=== PATIENT | male | born 1935 | race Caucasian/White ===

== ENCOUNTER 2019-09-21 05:02 | Inpatient (IN) ==
[2019-09-13 14:05] LABS: Basophils # (auto) 0.02 K/uL (0-0.2); Basophils % (auto) 0.3 %; Eosinophils # (auto) 0.07 K/uL (0-0.5); Hematocrit (blood only) 47.2 % (42-52); Hemoglobin 16.2 g/dL (14.0-18.0); Immature Granulocytes # (auto) 0.01 K/uL (0.00-0.02); Immature Granulocytes % (auto) 0.1 %; Lymphocytes % (auto) 23.2 %; Mean Corpuscular Hemoglobin 30.7 pg (25-34); Mean Corpuscular Hgb Conc 34.3 g/dL (32-36); Mean Corpuscular Volume 89.6 fL (80-100); Mean Platelet Volume 8.7 fL (7.4-10.4); Monocytes # (auto) 0.52 K/uL (0.11-0.59); Monocytes % (auto) 7.1 %; Neutrophils # (auto) 5.01 K/uL (1.4-6.5); Neutrophils % (auto) 68.3 %; Platelet Count 190 K/uL (130-400); RDW Coefficient of Variation 12.6 % (11.5-14.5); RDW Standard Deviation 41.1 fL (36.4-46.3); Red Blood Count 5.27 M/uL (4.7-6.1); White Blood Count 7.33 K/uL (4.8-10.8)
[2019-09-13 14:34] LABS: Prothrombin Time 10.6 Seconds (9.0-12.0)
[2019-09-13 17:18] LABS: Alanine Aminotransferase 22 U/L (12-78); Albumin Level 3.7 gm/dl (3.4-5.0); BUN Creatinine Ratio 19.1 (10-20); Blood Urea Nitrogen 18 mg/dl (7-18); Calcium 8.8 mg/dl (8.5-10.1); Carbon Dioxide 29 mmol/L (21-32); Chloride 106 mmol/L (98-107); Est GFR (African American) 87.2; Est GFR (Non-African American) 75.2; Glucose 105 mg/dl (70-99); Potassium 4.4 mmol/L (3.5-5.1); Sodium 141 mmol/L (136-145)
[2019-09-13 17:29] LABS: Albumin Globulin Ratio 1.1 (0.9-2); Alkaline Phosphatase 82 U/L (45-117); Aspartate Aminotransferase 19 U/L (15-37); Bilirubin,Total 0.7 mg/dl (0.2-1); C Reactive Protein < 0.29 mg/dl (0-0.29); Globulin 3.5 gm/dl (2.5-4.0); Total Protein 7.2 gm/dl (6.4-8.2)
--- NOTE | 2019-09-14 12:43 | History and Physical Report ---
DATE OF ADMISSION: 09/21/2019 CHIEF COMPLAINT: Left hip pain, discomfort, and stiffness. HISTORY OF PRESENT ILLNESS: The patient is an 84-year-old gentleman from [place] who presents now for surgical treatment of his left hip. He is well known to me from previous right hip replacement done in 11/2006. We had actually scheduled for left hip surgery in June, but he got canceled due to the COVID epidemic. He now would like to proceed with surgery. He has got a year plus history of increasing left hip pain and discomfort. No known injury. He describes groin pain, thigh pain radiating down to his knee but no further. He has difficulty putting his shoes and socks on. He walks with a hunched over posture and limps more as the day goes on. He was initially going to go have his hip fixed in [place], but elected to have it done here. He would like to have his hip fixed now. PAST MEDICAL HISTORY: 1. Hypertension. 2. Elevated cholesterol. 3. Gastroesophageal reflux disease. 4. Hiatal hernia. 5. BPH. PAST SURGICAL HISTORY: Includes: 1. Right total hip replacement done on 12/24/2006. 2. Eye surgery. ALLERGIES: None. CURRENT MEDICATIONS: Include: 1. Hyzaar. 2. Omeprazole. 3. Multivitamin. 4. Pravastatin. 5. Finasteride. 6. Turmeric. SOCIAL HISTORY: An 84-year-old male. He is from [place]. He is . Does not smoke. Rare alcohol intake. FAMILY HISTORY: Noncontributory. REVIEW OF SYSTEMS: Negative for diabetes, neurologic problem, vascular problems or other bleeding disorders. No chest pain or shortness of breath. No history of DVT or PE. No known bleeding problems. PHYSICAL EXAMINATION: GENERAL: Reveals a healthy pleasant elderly male. Looks younger than his stated age. HEENT: Benign. NECK: Supple, no lymphadenopathy. LUNGS: Clear to auscultation. HEART: Has a regular rate and rhythm. ABDOMEN: Soft, nontender, nondistended. EXTREMITIES: Grossly neurovascularly intact except as follows: Examination of the left hip reveals the patient walks with a bit of a limp. He is about 0.5 cm short on the left side compared to the right. He has got a very stiff hip with internal rotation to neutral at best. This does recreate his pain. He has no knee effusion. Negative straight leg raise. X-RAYS: X-rays of the left hip were reviewed. It shows advanced left hip DJD. He has got complete loss of his joint space. He has got cystic change of the femoral head and acetabulum. The right hip replacement looks to be in good position. ASSESSMENT: An 84-year-old gentleman 13 years out from right hip replacement with advanced left hip degenerative joint disease. He has failed conservative care. He was previously scheduled for surgery but canceled due to the COVID epidemic. He has been tested and his COVID test is pending. PLAN: We are going to proceed with left total hip replacement. The risks and benefits of this procedure were explained to the patient and include but not limited to DVT, PE, , infection, neurological injury, vascular injury, bleeding problem, pain, limited range of motion, stiffness, failure to relieve symptoms, incomplete relief of symptoms, need for further surgery in the future, fracture, leg length inequality, nerve palsy, dislocation, etc. The patient understands and desires to proceed. Informed consent was obtained. As stated above, he was scheduled previously but canceled due to the COVID epidemic. He would now like to proceed. He knows the slight increased risks with the COVID situation. He has been tested and this test is currently pending. As far as discharge plans, he is planning to be discharged home using [facility] program.
--- NOTE | 2019-09-15 10:27 | Anesthesiology Consultation ---
Date of Service September 15, 2019 Assessment & Plan (1) Encounter for pre-operative examination: COVID Status: As of nurse assessment 09/14, patient denies travel to endemic area, known exposure/sick contacts, or symptoms. He was tested for coronavirus for pre-op screening on 09/12 at [facility]. Results pending. Chart Review Chart Review: Acceptable Risk for Surgery (pending covid test results) and Patient NOT seen in Pre Admission Testing History Surgery Operation Date: 09/21/19 12:30 Proposed Procedures p Left Total Hip Arthroplasty - Phani Santos MD Height/Weight Height: 5 ft 8 in Weight: 85.275 kg Allergies Allergy/AdvReac Type Severity Reaction Status Date / Time No Known Allergies Allergy Unknown Verified 09/15/19 08:57 Medications Home Medications Medication Instructions Recorded Confirmed Last Taken finasteride 5 mg PO HS 06/26/19 09/15/19 Unknown hydrochlorothiazide 25 mg PO QAM 06/26/19 09/15/19 Unknown [id number]-[id number]-[id number]-ast 1 cap PO QAM 06/26/19 09/15/19 Unknown [krill oil] losartan 100 mg PO QAM 06/26/19 09/15/19 Unknown multivitamin 1 tab PO DAILY 06/26/19 09/15/19 Unknown omeprazole 40 mg PO QAM 06/26/19 09/15/19 Unknown pravastatin [Pravachol] 40 mg PO HS 06/26/19 09/15/19 Unknown turmeric 400 mg PO DAILY 06/26/19 09/15/19 Unknown 3-in-1 Commode #1 ea 06/29/19 09/15/19 Unknown diphenhydramine HCl [Sleep Aid 25 mg PO HS 09/15/19 09/15/19 Unknown (diphenhydramine)] Past Medical History Medical History Arthritis of left hip BCC (basal cell carcinoma) BPH (benign prostatic hyperplasia) GERD (gastroesophageal reflux disease) controlled Hyperlipidemia Hypertension Melanoma Osteoarthritis SCC (squamous cell carcinoma) Splenic artery aneurysm ~6mm (under surveillance) Past Family History Family History Mother FHx: liver cancer Other No family history of adverse response to anesthesia Past Surgical History Surgical History History of cataract surgery bilateral History of colonoscopy History of esophageal dilatation History of esophagogastroduodenoscopy (EGD) History of right hip replacement History of surgical removal of lesion History of tonsillectomy Status post Mohs surgery Social History Smoking Status: Former smoker tobacco type: cigars Smoking cigarettes per day: none Do You Dip or Chew Tobacco: No Smoking End Date: quit smoking cigar 4 months ago Hx Alcohol Use: No (quit 25 yrs ago) Hx Substance Use: No substance use type: does not use Testing Laboratory Results 09/13/19 13:13 09/13/19 13:13 PT 10.6 Seconds (9.0-12.0) 09/13/19 13:13 INR 1.0 (0.9-1.1) 09/13/19 13:13 Blood Type A Positive 09/13/19 13:13 Antibody Screen NEGATIVE 09/13/19 13:13 Electrocardiogram Date: 06/29/19 Findings: + NSR @ (69bpm) iRBBB (new compared to 2006 EKG). Chest X-Ray Date: 06/29/19 IMPRESSION: Mild cardiac enlargement with no active disease in the chest.
[2019-09-17 16:04] LABS: SARS CoV2 RNA (COVID-19) NOT DETECTED (NOT DETECTED)
[2019-09-21] MEDS ORDERED: CEFAZOLIN 2000MG 2,000 MG/15 ML SYR IV SCH (06:00)
[2019-09-21] MEDS ORDERED: TRANEXAMIC ACID 1,000 MG **IV Intra-op IV SCH (06:00)
[2019-09-21] MEDS ORDERED: LR 500ML BOLUS, THEN 15ML/HR IV SCH (06:00)
[2019-09-21] MEDS ORDERED: GABAPENTIN 300 MG CAP PO SCH (06:00)
[2019-09-21] MEDS ORDERED: TRANEXAMIC ACID 1,000 MG **IV Pre-op IV SCH (06:00)
[2019-09-21] MEDS ORDERED: ACETAMINOPHEN 500 MG TAB PO SCH (06:00)
[2019-09-21] MEDS ORDERED: METOCLOPRAMIDE HCL 10 MG TABLET PO SCH (06:00)
[2019-09-21] MEDS ORDERED: FAMOTIDINE 20 MG TAB PO SCH (06:00)
[2019-09-21] MEDS ORDERED: MIDAZOLAM HCL 1 MG/ML 2ML VIAL ONE (06:21)
[2019-09-21] MEDS ORDERED: BUPIVACAINE 0.5 % 5 MG/1 ML PF 10ML VIAL ONE (06:21)
[2019-09-21] MEDS ORDERED: MoRPHine SULFATE PF 1 MG/ML 10 ML AMP/VIAL ONE (06:22)
[2019-09-21] MEDS ORDERED: fentaNYL citrate 100 MCG/2 ML VIAL ONE (06:22)
[2019-09-21] MEDS ORDERED: BACITRACIN INJ 50,000 UNIT VIAL ONE (06:38)
[2019-09-21] MEDS ORDERED: BUPIVACAINE 0.5 % 5 MG/1 ML MPF 30ML VIAL ONE (06:39)
[2019-09-21] MEDS ORDERED: EPINEPHrine INJ 1 MG/ML AMP ONE (06:39)
--- NOTE | 2019-09-21 06:48 | History & Physical Bridge Note ---
Date of Service September 21, 2019 History & Physical Bridge Note I have examined the patient, reviewed the History & Physical and in the interval since the performance of the History & Physical I have noted the following changes of clinical significance: no changes noted
[2019-09-21] MEDS ORDERED: DiphenhydrAMINE HCL 50 MG/ML VIAL IV PRN (06:59)
[2019-09-21] MEDS ORDERED: NALBUPHINE HCL INJ 10 MG/ML AMP IV PRN (06:59)
[2019-09-21] MEDS ORDERED: ePHEDrine sulfate 50 MG/ML AMP IV PRN ×2 (06:59)
[2019-09-21] MEDS ORDERED: ONDANSETRON INJ 2 MG/ML 2 ML VIAL IV PRN (06:59)
[2019-09-21] MEDS ORDERED: NALOXONE HCL 1 MG in SODIUM CHLORIDE 0.9% 1000ML 1,000 ML IV PRN (06:59)
[2019-09-21] MEDS ORDERED: ATROPINE SULFATE 0.1 MG/ML 10ML SYR IV PRN (06:59)
[2019-09-21] MEDS ORDERED: NALOXONE HCL 0.08 MG in SYRINGE 1.8 ML IV PRN (06:59)
[2019-09-21] MEDS ORDERED: NALOXONE HCL 0.4 MG/1 ML VIAL/CARP IV PRN ×2 (06:59→09:44)
[2019-09-21] MEDS ORDERED: MoRPHine SULFATE PF 1 MG/ML 10 ML AMP/VIAL INT SPINAL ONE (06:59)
[2019-09-21] MEDS ORDERED: LACTATED RINGER'S 500 ML IV PRN (06:59)
[2019-09-21] MEDS ORDERED: HYDROmorphone INJ 0.5 MG/0.5 ML SYR IV PRN (06:59)
[2019-09-21] MEDS ORDERED: SODIUM CHLORIDE 0.9% 1000ML 1,000 ML IV SCH (07:00)
[2019-09-21] MEDS ORDERED: NO NARCOTICS OR SEDATIVES SCH (07:00)
[2019-09-21] MEDS ORDERED: PHENYLEPHRINE 100MCG/ML 5ML SYR ONE (07:10)
[2019-09-21] MEDS ORDERED: PROPOFOL IV EMULSION 10 MG/ML 20 ML VIAL IV ONE ×2 (07:10→07:12)
[2019-09-21] MEDS ORDERED: ePHEDrine sulfate 50 MG/ML SYR ONE (07:30)
--- NOTE | 2019-09-21 08:25 | Post Operative Brief Note ---
PG Immediate Post Op with CF Date of Surgery September 21, 2019 Pre & Post Diagnosis Operation Date: 09/21/19 07:00 Pre-Op Diagnosis: Left Hip Degenerative Joint Disease Post-Op Diagnosis: Left Hip Degenerative Joint Disease I identified the patient and participated in the time-out.: Yes Procedure Operation Date: 09/21/19 07:00 Actual Procedures p Left Total Hip Arthroplasty(Left) - Phani Santos MD Surgeon Phani Santos MD Sleever Sean, PAC Estimated Blood Loss 200 Findings Consistent with Post-Op Diagnosis Fluids 1400 cc Specimens Specimen Description: A. Left Femoral Head Drains Cleary Catheter (16fr inserted by CANDACE Schaefer without difficulty) Anesthesia Type Spinal MAC Complications none Disposition Accompanied Patient To Recovery: Yes Disposition: Recovery Room
--- NOTE | 2019-09-21 08:52 | Anesthesiology Progress Note ---
Date of Service September 21, 2019 Anesthesia Post Procedure Vital Signs Vital Signs: Temp Pulse Pulse Resp BP BP Pulse Ox 09/21/19 08:50 86 20 109/57 L 96 09/21/19 08:40 77 17 122/59 L 94 09/21/19 08:30 85 17 112/56 L 95 09/21/19 08:21 36.5 C 85 18 129/62 96 09/21/19 05:35 36.9 C 76 20 153/89 H 97 Transfer of Care Handoff Completed per policy Notes Mental Status: alert / awake / arousable Patient Amnestic to Procedure: Yes Nausea / Vomiting: adequately controlled Pain: adequately controlled Airway Patency, RR, SpO2: stable & adequate BP & HR: stable & adequate Hydration State: stable & adequate Neuraxial Anesthesia: was administered and sensory block is resolving Anesthetic Complications: no major complications apparent and Pt Satisfied with anesthetic care
--- NOTE | 2019-09-21 09:06 | XRay Report ---
XR hip 1V LT w pelvis HISTORY: 84 years-old Male IN PACU - A/P PELVIS and LATERAL HIP left hip total joint arthroplasty COMPARISON: Pelvis and hip radiographs 06/29/2019 TECHNIQUE: AP view of the pelvis with 2 views of the left hip FINDINGS: Unchanged right hip total joint arthroplasty. Interval placement of a left hip total joint arthroplas ty which demonstrates satisfactory alignment. No acute fracture or retained foreign body. Lateral ski n davina. Expected postsurgical soft tissue swelling and deep tissue air. IMPRESSION: Left hip total joint arthroplasty with expected postoperative findings. ACT 112: Negative or not required by law. The above report was generated using voice recognition software. It may contain grammatical, syntax o r spelling errors. Electronically signed by: Stuart Glass M.D. 09/21/2019 9:04 AM
[2019-09-21] MEDS ORDERED: MAGNESIUM HYDROXIDE SUSP 30 ML UDC PO PRN (09:44)
[2019-09-21] MEDS ORDERED: TAMSULOSIN HCL 0.4 MG CAP PO PRN (09:44)
[2019-09-21] MEDS ORDERED: MULTIVITAMIN TAB PO SCH (09:44)
[2019-09-21] MEDS ORDERED: ALUMINUM/MAGNESIUM SUSP 30 ML UDC PO PRN (09:44)
[2019-09-21] MEDS ORDERED: METOCLOPRAMIDE HCL INJ 5 MG/ML 2 ML VIAL IV PRN (09:44)
[2019-09-21] MEDS ORDERED: bisacodyL 10 MG SUPP PR PRN (09:44)
[2019-09-21] MEDS ORDERED: NON-FORMULARY MEDICATION (Turmeric 400 MG) PO SCH (09:44)
[2019-09-21] MEDS: SODIUM CHLORIDE 0.9% 1000ML 1,000 ML IV SCH ×2 (10:00→19:20)
--- NOTE | 2019-09-21 11:12 | Progress Notes ---
DATE: 09/21/2019 SUBJECTIVE: An 84-year-old gentleman postop from a left hip replacement. He is doing pretty well. Really not much pain yet. No chest pain or shortness of breath. Not feeling dizzy or lightheaded. OBJECTIVE: VITAL SIGNS: Temperature 36.4. Vital signs stable. GENERAL: Physical examination shows a pleasant, elderly male. He is sitting up in bed, looks reasonably comfortable. LUNGS: Clear to auscultation. HEART: Has regular rate and rhythm. ABDOMEN: Soft, nontender, nondistended. EXTREMITIES: Grossly neurovascularly intact except as follows. Examination of the left hip and leg reveals his leg lengths are equal. Dressing is clean, dry and intact. His thigh is soft and supple. He can dorsiflex and plantarflex his foot appropriately. He is neurologically intact. X-RAYS: X-rays of the left hip from Recovery Room reviewed. It shows left uncemented total hip arthroplasty. Components looked to be in good position. No signs of problems. ASSESSMENT: An 84-year-old gentleman postop from a left hip replacement, doing pretty well. Hip is located. He is neurologically intact. PLAN: 1. DVT prophylaxis including thigh-high TEDs, SCDs and aspirin twice a day. 2. PT/OT, weight bear as tolerated. Left total hip protocol. 3. Pain control, doing well with current pain regimen currently. We will have to adjust his meds as his spinal wears off. 4. IV antibiotics x24 hours. 5. Disposition: He is planning to be discharged to home with some home health once adequately recovered and medically stable.
[2019-09-21] MEDS: hydroCHLOROthiazide 25 MG TAB PO SCH (12:05)
[2019-09-21] MEDS: LOSARTAN POTASSIUM 50 MG TAB PO SCH (12:05)
[2019-09-21] MEDS: DOCUSATE SODIUM 100 MG CAP PO SCH ×2 (12:05→20:56)
[2019-09-21] MEDS: MULTIVITAMIN TAB PO SCH (12:06)
[2019-09-21] MEDS: PANTOprazole 40 MG TAB PO SCH (12:06)
[2019-09-21] MEDS: ASPIRIN 81 MG ECTAB PO SCH ×2 (12:06→20:56)
--- NOTE | 2019-09-21 13:00 | Operative Report ---
Post Operative Report Pre & Post Diagnosis Operation Date: 09/21/19 07:00 Pre-Op Diagnosis: Left Hip Degenerative Joint Disease Post-Op Diagnosis: Left Hip Degenerative Joint Disease I identified the patient and participated in the time-out.: Yes Procedure Operation Date: 09/21/19 07:00 Actual Procedures p Left Total Hip Arthroplasty(Left) - Phani Santos MD Surgeon Phani Santos MD Auto Striper Sean, PAC Estimated Blood Loss 200 Findings Consistent with Post-Op Diagnosis Operative findings revealed advanced left hip DJD with grade 4 [id number] disease of the femoral head and acetabulum. He had a moderate-sized joint effusion. He had some anterior acetabular osteophytes. Fluids 1400 cc. Specimens Left femoral head sent for pathology. Drains None. Anesthesia Type Spinal MAC Complications none Disposition Accompanied Patient To Recovery: Yes Disposition: Recovery Room Indications Patient is an 84-year-old gentleman is had a long history of hip problems in the past. He underwent a right hip replacement about 13 years ago and is done well from this. Over the past year he is developed markedly increasing left hip pain discomfort which became more debilitating over time. He failed all conservative care. He elected proceed with total hip arthroplasty. Description of Procedure Operative implants consisted of: 1. Biomet G7 size 54 mm acetabular shell. 2. 6.5 cancellus acetabular screws 1 of 35 mm in length and 1 of 30 mm length. 3. Biomet highly cross-linked polyethylene liner with a 54 mm outer diameter and 36 mm inner diameter. 4. Dundee hole eliminator. 5. Lucy Corail size 11 KLA femoral stem. 6. +8.5/36 mm ceramic articular ball. Patient was taken to the operating room identified and placed on the operating table supine position protectors were properly padded. IV antibiotics arrived by anesthesia team. A spinal anesthetic been implemented holding area. Cleary catheter was placed in sterile fashion with the patient then placed in the right lateral decubitus position. Axillary roll was placed. A Stulberg hip positioner was used for positioning. Left hip and leg were then prepped and draped in usual sterile fashion. A posterior lateral approach of the left hip was then performed through a curvilinear incision centered over the greater trochanter. Sharp dissection was carried through subcutaneous tissue down to the IT band and gluteal fascia. The IT band gluteal fascia were then incised longitudinally in line with skin incision. The underlying greater bursa was excised. The piriformis and external rotators were then tagged and taken off the posterior aspect of the p osterior hip joint capsule. Great care was taken throughout the procedure protect sciatic nerve at all times. Posterior capsulotomy was then performed with large flap for later repair. Hip was internally rotated and dislocated. Femoral neck osteotomy cut was made with Final Cut about 10 mm above the lesser trochanter. Femoral head was removed and sent for pathology. The femur was retracted anteriorly. Attention drawn the acetabulum. The acetabular labrum was excised. Pulmonary fat was excised. Sequential reaming the acetabulum performed again with size 45 and progressing up to 53. W e did just gently reamed with a 54 reamer. A 54 mm Biomet G7 acetabular shell was then placed in about 40 degrees lateral opening and 20 degrees of anteversion. It was fixed with two 6.5 cancellus acetabular screws. A trial liner was placed. Some anterior osteophytes were removed. Attention drawn the femur. The proximal femurs was entered with a cookie-cutter followed by canal finder. I then broached begin the size 8 and progressing to 11. He had very good cancellus bone and I got good impaction so we elected to stop at the 11. The calcar reamer was used to smooth off the calcar. I then trialed the hip and I felt the +8.5 neck length re-created his soft tissue tension appropriately, provided optimal stability, and restored his leg lengths to equal. We elect to place these implants. All trial implants were removed. An apex hole eliminator was placed. Highly cross-linked polyethylene liner was placed. A Lucy KLA size 11 femoral stem was impacted in position. A +8.5/36 mm ceramic articular ball was placed. Hip was located once again found to be stable. Attention drawn toward closing. Wound was irrigated with copious pulsatile lavage solution. I did inject locally with 60 cc of half percent Marcaine with epinephrine. Patient did receive 1 g tranexamic acid preoperatively. The wound was irrigated extensively. The posterior capsule and external rotators were then repaired through drill holes in the posterior trochanter with #2 Tycron suture. The IT band gluteal fascia then closed #1 PDS suture in running fashion. Subcutaneous tissue then closed with 2 layers the deep layer #1 Vicryl suture and subcutaneous tissues with 2-0 Dexon suture in a buried interrupted fashion. Skin was closed skin davina. Leg was then cleaned dried a sterile dressing composed Xeroform, 4 x 4's, sterile ABD pad and foam tape was applied. Patient then transferred to the recovery room in stable condition. Patient tolerated the procedure well no complications. I attest to the content of the Intraoperative Record and any orders documented therein. Any exceptions are noted below.
[2019-09-21] MEDS: ACETAMINOPHEN 500 MG TAB PO SCH ×2 (13:22→20:56)
[2019-09-21] MEDS: CEFAZOLIN 2000MG 2,000 MG/15 ML SYR IV SCH ×2 (14:09→22:21)
[2019-09-21] MEDS ORDERED: TRANEXAMIC ACID / 0.7% NACL 1,000 MG/100 ML BAG IV SCH (14:28)
[2019-09-21] MEDS: FERROUS GLUCONATE 324 MG TAB PO SCH (18:04)
[2019-09-21] MEDS: PRAVASTATIN SOD 40 MG TAB PO SCH (20:56)
[2019-09-21] MEDS: FINASTERIDE 5 MG TAB PO SCH (20:56)
[2019-09-21] MEDS: SENNA 8.6 MG TAB PO SCH (20:56)
[2019-09-22] MEDS ORDERED: DC INTRASPINAL MORPHINE ONE (00:59)
[2019-09-22] MEDS ORDERED: ONDANSETRON INJ 2 MG/ML 2 ML VIAL IV PRN (00:59)
[2019-09-22] MEDS ORDERED: HYDROmorphone INJ 0.5 MG/0.5 ML SYR IV PRN (00:59)
[2019-09-22] MEDS: KETOROLAC TROMETHAMINE 15 MG/ML VIAL IV SCH ×4 (05:24→23:31)
[2019-09-22] MEDS: ACETAMINOPHEN 500 MG TAB PO SCH ×3 (05:24→20:22)
[2019-09-22 07:04] LABS: Basophils # (auto) 0.01 K/uL (0-0.2); Basophils % (auto) 0.1 %; Eosinophils # (auto) 0.04 K/uL (0-0.5); Eosinophils % (auto) 0.4 %; Hematocrit (blood only) 37.4 % (42-52); Hemoglobin 13.1 g/dL (14.0-18.0); Immature Granulocytes # (auto) 0.01 K/uL (0.00-0.02); Immature Granulocytes % (auto) 0.1 %; Lymphocytes # (auto) 1.23 K/uL (1.2-3.4); Lymphocytes % (auto) 13.5 %; Mean Corpuscular Hemoglobin 30.8 pg (25-34); Monocytes # (auto) 0.89 K/uL (0.11-0.59); Monocytes % (auto) 9.7 %; Neutrophils # (auto) 6.95 K/uL (1.4-6.5); Neutrophils % (auto) 76.2 %; Platelet Count 125 K/uL (130-400); RDW Coefficient of Variation 12.4 % (11.5-14.5); Red Blood Count 4.25 M/uL (4.7-6.1); White Blood Count 9.13 K/uL (4.8-10.8)
[2019-09-22 07:32] LABS: BUN Creatinine Ratio 15.4 (10-20); Calcium 8.2 mg/dl (8.5-10.1); Creatinine Clr Calc Pharmacy 70.7 ml/min; Est GFR (Non-African American) 81.1; Potassium 3.5 mmol/L (3.5-5.1)
[2019-09-22] MEDS: DOCUSATE SODIUM 100 MG CAP PO SCH ×2 (08:19→20:16)
[2019-09-22] MEDS: PANTOprazole 40 MG TAB PO SCH (08:19)
[2019-09-22] MEDS: ASPIRIN 81 MG ECTAB PO SCH ×2 (08:20→20:16)
[2019-09-22] MEDS: FERROUS GLUCONATE 324 MG TAB PO SCH ×2 (08:20→17:54)
[2019-09-22] MEDS: LOSARTAN POTASSIUM 50 MG TAB PO SCH (08:20)
[2019-09-22] MEDS: MULTIVITAMIN TAB PO SCH (08:20)
[2019-09-22] MEDS: hydroCHLOROthiazide 25 MG TAB PO SCH (08:20)
--- NOTE | 2019-09-22 09:14 | Progress Notes ---
DATE: 09/22/2019 SUBJECTIVE: An 84-year-old gentleman postop day 1 from a left hip replacement. He is doing pretty well. Had a pretty good night. There is some pain, but manageable. No chest pain or shortness of breath. Not feeling dizzy or lightheaded. OBJECTIVE: VITAL SIGNS: Temperature 36.8. Vital signs stable. GENERAL: Physical examination shows a pleasant elderly male. He is sitting up in bed, looks pretty comfortable this morning. EXTREMITIES: Examination of the left hip reveals leg lengths to be equal. Dressing is clean, dry and intact. Thigh is soft and supple. NEUROLOGIC: He is neurologically intact. LABORATORY DATA: Hemoglobin 13.1. Hematocrit 37.4. Electrolytes are pending. ASSESSMENT: An 84-year-old gentleman postop day 1 from a left hip replacement, doing pretty well. His pain is controlled. Hip is located. He is neurologically intact. PLAN: 1. DVT prophylaxis include thigh-high TEDs, SCDs, and aspirin twice a day. 2. PT/OT. Weight bear as tolerated. Left total hip protocol. 3. Pain control, doing well with current pain regimen. 4. Disposition: He is planning to be discharged to home with some home health once medically stable. We will see how therapy goes today. Likely discharge tomorrow.
[2019-09-22] MEDS: SENNA 8.6 MG TAB PO SCH (20:16)
[2019-09-22] MEDS: FINASTERIDE 5 MG TAB PO SCH (20:16)
[2019-09-22] MEDS: PRAVASTATIN SOD 40 MG TAB PO SCH (20:16)
[2019-09-23] MEDS: KETOROLAC TROMETHAMINE 15 MG/ML VIAL IV SCH ×2 (00:09→02:15)
[2019-09-23] MEDS: ACETAMINOPHEN 500 MG TAB PO SCH (05:50)
[2019-09-23] MEDS: TRAMADOL HCL 50 MG TABLET PO PRN ×2 (05:54→10:20)
--- NOTE | 2019-09-23 08:45 | Progress Notes ---
DATE: 09/23/2019 SUBJECTIVE: An 84-year-old gentleman postop day 2 from a left hip replacement. He is doing pretty well. Hip is a bit sore, but manageable. Therapy went pretty well. No chest pain or shortness of breath. Not feeling dizzy or lightheaded. OBJECTIVE: VITAL SIGNS: Temperature is 37.4. Vital signs stable. GENERAL: Pleasant elderly male. He is lying in bed, looks comfortable. EXTREMITIES: Examination of the left hip reveals the leg lengths to be equal. Dressing is clean, dry and intact. Thigh is soft and supple. Minimal swelling. No significant drainage. He is neurologically intact. ASSESSMENT: An 84-year-old gentleman postop day 2 from a left hip replacement, doing pretty well. Hip is located. He is neurologically intact. PLAN: 1. DVT prophylaxis including thigh-high TEDs, SCDs, and aspirin twice a day. 2. PT/OT. Weight bear as tolerated. Left total hip protocol. 3. Pain control, doing pretty well with current pain regimen. 4. Disposition: Plan to discharge to home with some home health likely later today.
[2019-09-23] MEDS: DOCUSATE SODIUM 100 MG CAP PO SCH (09:14)
[2019-09-23] MEDS: MULTIVITAMIN TAB PO SCH (09:14)
[2019-09-23] MEDS: FERROUS GLUCONATE 324 MG TAB PO SCH (09:14)
[2019-09-23] MEDS: PANTOprazole 40 MG TAB PO SCH (09:15)
[2019-09-23] MEDS: ASPIRIN 81 MG ECTAB PO SCH (09:15)
[2019-09-23] MEDS: hydroCHLOROthiazide 25 MG TAB PO SCH (09:15)
[2019-09-23] MEDS: LOSARTAN POTASSIUM 50 MG TAB PO SCH (09:16)
--- NOTE | 2019-09-25 15:56 | Discharge Summary ---
Date of Service September 25, 2019 Admission HPI Per Admitting Provider Document in the admission H&P Admission Exam (Per Admitting) Constitutional Documented in the admission H&P Discharge Data Consultations 09/22/19 08:00 Consult Case Management - Discharge Planning Routine Procedures Performed Operation Date: 09/21/19 07:00 Actual Procedures p Left Total Hip Arthroplasty(Left) - Phani Santos MD Hospital Course (1) Status post left hip replacement: 10-year-old male admitted on 09/21/2019 underwent total hip arthroplasty. Tolerated procedure well. There were no complications. He is transferred to the PACU postoperatively. Later the orthopedic for further care. He is given Ancef for antibiotic prophylaxis. He was given HUI stockings, SCDs, aspirin for DVT prophylaxis. Hemoglobin, hematocrit and vital signs were monitored during his hospital stay remained stable. Did not require blood transfusions. There were no complications. Postoperative day 2 he is tolerating a regular diet. Pain is controlled with oral pain medicine. He is participating in physical therapy. Postop day 2 was discharged home set up with home health services. He is given printed discharge instructions including new prescriptions for Tylenol, aspirin, and tramadol. Continue physical therapy. He is weightbearing as tolerated. Continue HUI stockings continue total hip precautions. Follow-up in approximately 2 weeks postoperatively or sooner if there are any problems or concerns. Coding Level of Care Code None Diagnoses Status post left hip replacement Z96.642
== END 2019-09-23 11:38 | disposition home health service (06) | DRG 470 ==
LOC: ASU 05:02 → 3E 08:29
DX: I10 Essential (primary) hypertension; N40.0 Benign prostatic hyperplasia without lower urinary tract symptoms; K21.9 Gastro-esophageal reflux disease without esophagitis; Z79.899 Other long term (current) drug therapy; M16.12 Unilateral primary osteoarthritis, left hip; E78.5 Hyperlipidemia, unspecified; Z87.891 Personal history of nicotine dependence; Z96.641 Presence of right artificial hip joint

== ENCOUNTER 2019-11-27 05:13 | Observation (INO) ==
[2019-11-22 09:25] LABS: Basophils # (auto) 0.01 K/uL (0-0.2); Basophils % (auto) 0.2 %; Eosinophils # (auto) 0.14 K/uL (0-0.5); Eosinophils % (auto) 2.3 %; Hematocrit (blood only) 44.8 % (42-52); Hemoglobin 15.7 g/dL (14.0-18.0); Immature Granulocytes # (auto) 0.01 K/uL (0.00-0.02); Immature Granulocytes % (auto) 0.2 %; Lymphocytes # (auto) 1.82 K/uL (1.2-3.4); Lymphocytes % (auto) 29.7 %; Mean Corpuscular Hemoglobin 30.6 pg (25-34); Mean Corpuscular Volume 87.3 fL (80-100); Mean Platelet Volume 8.7 fL (7.4-10.4); Monocytes # (auto) 0.45 K/uL (0.11-0.59); Monocytes % (auto) 7.3 %; Neutrophils % (auto) 60.3 %; Platelet Count 178 K/uL (130-400); RDW Coefficient of Variation 12.5 % (11.5-14.5); Red Blood Count 5.13 M/uL (4.7-6.1); White Blood Count 6.13 K/uL (4.8-10.8)
[2019-11-22 09:58] LABS: BUN Creatinine Ratio 17.1 (10-20); Blood Urea Nitrogen 15 mg/dl (7-18); Calcium 8.7 mg/dl (8.5-10.1); Carbon Dioxide 32 mmol/L (21-32); Chloride 108 mmol/L (98-107); Est GFR (African American) 93.6; Est GFR (Non-African American) 80.8; Glucose 87 mg/dl (70-99); Potassium 4.2 mmol/L (3.5-5.1); Sodium 141 mmol/L (136-145)
--- NOTE | 2019-11-23 09:21 | Anesthesiology Consultation ---
Date of Service November 23, 2019 Assessment & Plan (1) Encounter for pre-operative examination: Per nursing phone assessment on 11/22: Travel screen- Lives in [facility]. Travel to [facility] (one day) on 11/07 (wore mask, outdoor eating). No travel outside the local area in greater than 2 weeks. No known COVID-19 positive contacts. No current COVID-19 related symptoms. Patient had preop protocol COVID-19 testing 11/21 ([place])- results pending. - S/P Left JOSE: 09/21/19: SAB x2 attempts at L3 at [facility] Chart Review Chart Review: Acceptable Risk for Surgery and Patient NOT seen in Pre Admission Testing History Surgery Operation Date: 11/27/19 10:20 Proposed Procedures p Right Open Inguinal Hernia Repair - Austyn Herr MD, FACS Height/Weight Height: 5 ft 8 in Weight: 81.647 kg Allergies Allergy/AdvReac Type Severity Reaction Status Date / Time No Known Allergies Allergy Unknown Verified 11/23/19 08:09 Medications Home Medications Medication Instructions Recorded Confirmed Last Taken finasteride 5 mg PO 06/26/19 11/23/19 09/20/19 18:00 [id number]-[id number]-2-fnl-hwd-xqbtdks-ast 1 cap PO QAM 06/26/19 11/23/19 09/01/19 [krill oil] multivitamin 1 tab PO QAM 06/26/19 11/23/19 Unknown omeprazole 40 mg PO QAM 06/26/19 11/23/19 09/21/19 04:00 pravastatin [Pravachol] 40 mg PO 06/26/19 11/23/19 09/20/19 18:00 turmeric 400 mg PO QAM 06/26/19 11/23/19 09/11/19 3-in-1 Commode #1 ea 06/29/19 11/15/19 Unknown diphenhydramine HCl [Sleep Aid 25 mg PO HS 09/15/19 11/23/19 09/20/19 21:00 (diphenhydramine)] aspirin 81 mg chewable tablet 81 mg PO DAILY 11/15/19 11/23/19 Unknown losartan 100 1 tab PO QAM 11/15/19 11/23/19 Unknown mg-hydrochlorothiazide 12.5 mg tablet Past Medical History Medical History BCC (basal cell carcinoma) BPH (benign prostatic hyperplasia) GERD (gastroesophageal reflux disease) controlled Hyperlipidemia Hypertension Melanoma Osteoarthritis SCC (squamous cell carcinoma) Splenic artery aneurysm ~6mm (under surveillance) Past Family History Family History Mother FHx: liver cancer Cancer Other No family history of adverse response to anesthesia Past Surgical History Surgical History (Updated 11/23/19 @ 09:19 by Sierra Odonnell) History of cataract surgery bilateral History of colonoscopy History of esophageal dilatation History of esophagogastroduodenoscopy (EGD) History of left hip replacement (09/21/19) Left JOSE: 09/21/19: SAB x2 attempts at L3 at [facility] History of right hip replacement History of surgical removal of lesion History of tonsillectomy Status post Mohs surgery Social History Smoking Status: Current some day smoker tobacco type: cigars Smoking cigarettes per day: ocas Do You Dip or Chew Tobacco: No Hx Alcohol Use: No Hx Substance Use: No substance use type: does not use Testing Laboratory Results 11/22/19 WBC 6.13 H/H 15.7/44.8 PLATELETS 178 SODIUM 141 POTASSIUM 4.2 CHLORIDE 108 CO2 32 BUN 15 CREATININE 0.86 GLUCOSE 87 Electrocardiogram Date: 06/29/19 Findings: + NSR @ (69bpm) iRBBB (new compared to 2006 EKG). Chest X-Ray Date: 06/29/19 IMPRESSION: Mild cardiac enlargement with no active disease in the chest.
[2019-11-27] MEDS ORDERED: LACTATED RINGER'S 1,000 ML IV SCH (06:00)
[2019-11-27] MEDS ORDERED: CEFAZOLIN 2000MG 2,000 MG/15 ML SYR IV SCH (06:00)
[2019-11-27] MEDS ORDERED: PROPOFOL IV EMULSION 10 MG/ML 20 ML VIAL IV ONE (06:33)
[2019-11-27] MEDS ORDERED: LIDOCAINE HCL 2% 2 ML VIAL/AMP(20MG/ML) INFIL ONE (06:33)
[2019-11-27] MEDS ORDERED: DEXAMETHASONE SOD INJ 4 MG/ML VIAL ONE (06:33)
[2019-11-27] MEDS ORDERED: ONDANSETRON INJ 2 MG/ML 2 ML VIAL ONE (06:33)
[2019-11-27] MEDS ORDERED: fentaNYL citrate 100 MCG/2 ML VIAL ONE (06:33)
[2019-11-27] MEDS ORDERED: BUPIVACAINE 0.5 % 5 MG/1 ML MPF 30ML VIAL ONE (06:43)
[2019-11-27] MEDS ORDERED: CEFAZOLIN 250 MG/ML 1 GM VIAL ONE (06:43)
--- NOTE | 2019-11-27 06:46 | History & Physical Bridge Note ---
Date of Service November 27, 2019 History & Physical Bridge Note I have examined the patient, reviewed the History & Physical and in the interval since the performance of the History & Physical I have noted the following changes of clinical significance: no changes noted
[2019-11-27] MEDS ORDERED: ePHEDrine sulfate 50 MG/ML SYR ONE (07:45)
[2019-11-27] MEDS ORDERED: ACETAMINOPHEN 1,000 MG/100 ML VIAL IV ONE (07:56)
--- NOTE | 2019-11-27 07:56 | Post Operative Brief Note ---
PG Immediate Post Op with CF Date of Surgery November 27, 2019 Pre & Post Diagnosis Operation Date: 11/27/19 07:00 Pre-Op Diagnosis: Right Inguinal Hernia Post-Op Diagnosis: Right Inguinal Hernia I identified the patient and participated in the time-out.: Yes Procedure Operation Date: 11/27/19 07:00 Actual Procedures p Right Open Inguinal Hernia Repair(Right) - Austyn Herr MD, FACS Surgeon Austyn Herr MD, FACS Remelter Bryant Gray Estimated Blood Loss 5 Findings Consistent with Post-Op Diagnosis Specimens Specimen Description: None collected per surgeon
[2019-11-27] MEDS ORDERED: ePHEDrine sulfate 50 MG/ML AMP IV PRN (08:08)
[2019-11-27] MEDS ORDERED: ONDANSETRON INJ 2 MG/ML 2 ML VIAL IV PRN ×2 (08:08→09:21)
[2019-11-27] MEDS ORDERED: ATROPINE SULFATE 0.1 MG/ML 10ML SYR IV PRN (08:08)
[2019-11-27] MEDS ORDERED: fentaNYL citrate 100 MCG/2 ML VIAL IV PRN (08:08)
--- NOTE | 2019-11-27 08:28 | Anesthesiology Progress Note ---
Date of Service November 27, 2019 Anesthesia Post Procedure Vital Signs Vital Signs: Temp Pulse Pulse Resp BP Pulse Ox 11/27/19 08:25 72 18 120/70 98 11/27/19 08:15 73 18 127/66 99 11/27/19 08:09 36.0 C L 76 16 132/69 99 11/27/19 05:43 37.1 C 74 18 149/79 H 96 Transfer of Care Handoff Completed per policy Notes Mental Status: alert / awake / arousable and participated in evaluation Patient Amnestic to Procedure: Yes Nausea / Vomiting: adequately controlled Pain: adequately controlled Airway Patency, RR, SpO2: stable & adequate BP & HR: stable & adequate Hydration State: stable & adequate Anesthetic Complications: no major complications apparent and Pt Satisfied with anesthetic care
[2019-11-27] MEDS ORDERED: PROMETHAZINE HCL 12.5 MG in SODIUM CHLORIDE 0.9% 50 ML IV PRN (09:21)
[2019-11-27] MEDS ORDERED: MoRPHine SULFATE 2 MG/ML CARP IV PRN ×2 (09:21)
[2019-11-27] MEDS ORDERED: ACETAMINOPHEN 325 MG TAB PO PRN (09:21)
[2019-11-27] MEDS ORDERED: SODIUM CHLORIDE 0.9% 1000ML 1,000 ML IV SCH (09:21)
[2019-11-27] MEDS ORDERED: HYDROCODONE/ACETAMOPHEN 5/325MG TAB PO PRN ×2 (09:21)
--- NOTE | 2019-11-27 09:43 | Operative Report (OR) ---
DATE OF OPERATION: 11/27/2019 NAME OF OPERATION: Open right inguinal hernia repair. PREOPERATIVE DIAGNOSIS: Right inguinal hernia. POSTOPERATIVE DIAGNOSIS: Right inguinal hernia with indirect defect. STAFF SURGEON: Austyn Herr MD. GLOBAL LOGISTICS MANAGER: Yael Gray PA-C. ANESTHESIA: General LMA. DESCRIPTION OF PROCEDURE: The patient was brought in the operating room and placed on the operating table in supine position. We did attempt to place a Cleary catheter, but met with some obstruction. Therefore, we did not get too aggressive and held off. His lower abdomen was prepped and draped in usual fashion. Right side was approached. Skin and subcutaneous tissue were anesthetized using 0.5% plain Marcaine. My visitor services assistant did help with prepping, draping, repair of the hernia and closure of the wound. Dissection was carried down to the external oblique fibers, incised along their length to the external ring, identifying the hernia. Cord structures were mobilized. The patient had an indirect hernia with lipoma. This was reduced. Mesh plug was placed into the defect, secured to surrounding tissue using 2-0 Ethibond suture. Large mesh patch was then placed over the plug around the cord structures, secured to the surrounding tissue using 2-0 Ethibond suture. The external oblique fibers were closed over the mesh and around the cord structures using 2-0 Ethibond suture and 0 chromic suture. The site was irrigated with antibiotic solution and anesthetized with 0.5% plain Marcaine and then the subcutaneous tissue reapproximated using 2-0 plain suture and then the skin reapproximated using 4-0 nylon suture with Steri-Strips. The patient was transferred to recovery room in stable condition. I attest to the content of the Intraoperative Record and any orders documented therein. Any exception s are noted below.
[2019-11-27] MEDS: DOCUSATE SODIUM/SENNA 50/8.6MG TAB PO SCH ×2 (10:35→20:07)
[2019-11-27] MEDS: MAGNESIUM HYDROXIDE SUSP 30 ML UDC PO SCH ×2 (10:36→20:07)
[2019-11-27] MEDS: PANTOprazole 40 MG TAB PO SCH ×2 (10:36→23:40)
[2019-11-27] MEDS: hydroCHLOROthiazide 25 MG TAB PO SCH (10:41)
[2019-11-27] MEDS: LOSARTAN POTASSIUM 50 MG TAB PO SCH (11:31)
[2019-11-27] MEDS: CEFAZOLIN 1000MG 1,000 MG/7.5 ML SYR IV SCH ×2 (14:30→22:20)
--- NOTE | 2019-11-27 16:23 | Hospitalist Consultation ---
Date of Consultation November 27, 2019 Assessment & Plan (1) H/O right inguinal hernia repair: Repair with open method by Dr. Herr 11/27/2019 (2) Hypertension: Patient ordered and will continue losartan 100 mg (3) Hyperlipidemia: Typically is on Pravachol this is ordered (4) BPH (benign prostatic hyperplasia): Patient continues on Proscar History of Present Illness Attending Physician: Austyn Herr MD, FACS History of Present Illness Patient was seen postoperatively after right inguinal hernia repair. Patient has no complaints or problems he is only has minor pain at this point and going home on 11/27 Allergies Allergy/AdvReac Type Severity Reaction Status Date / Time No Known Allergies Allergy Unknown Verified 11/23/19 08:09 Home Medications Home Medications Medication Instructions Recorded Confirmed Type finasteride 5 mg PO HS 06/26/19 11/27/19 History [id number]-ast 1 cap PO QAM 06/26/19 11/27/19 History [krill oil] multivitamin 1 tab PO QAM 06/26/19 11/27/19 History omeprazole 40 mg PO QAM 06/26/19 11/27/19 History pravastatin [Pravachol] 40 mg PO HS 06/26/19 11/27/19 History turmeric 400 mg PO QAM 06/26/19 11/27/19 History 3-in-1 Commode #1 ea 06/29/19 11/15/19 Rx diphenhydramine HCl [Sleep Aid 25 mg PO HS 09/15/19 11/27/19 History (diphenhydramine)] aspirin 81 mg chewable tablet 81 mg PO DAILY 11/15/19 11/27/19 History losartan 100 1 tab PO QAM 11/15/19 11/27/19 History mg-hydrochlorothiazide 12.5 mg tablet Patient History Medical History (Updated 11/27/19 @ 16:22 by Attila Hernandez MD) BCC (basal cell carcinoma) BPH (benign prostatic hyperplasia) GERD (gastroesophageal reflux disease) controlled Hyperlipidemia Hypertension Melanoma Osteoarthritis SCC (squamous cell carcinoma) Splenic artery aneurysm ~6mm (under surveillance) Surgical History (Updated 11/27/19 @ 13:33 by Austyn Herr MD, FACS) H/O right inguinal hernia repair (11/27/19) Open right inguinal hernia repair. Dr. 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) Left JOSE: 09/21/19: SAB x2 attempts at L3 at [facility] History of right hip replacement History of surgical removal of lesion History of tonsillectomy Status post Mohs surgery Family History Mother FHx: liver cancer Cancer Other No family history of adverse response to anesthesia Social History (Updated 11/15/19 @ 13:04 by Trina Malcolm RN) Smoking Status: Current some day smoker Cigarettes Per Day: ocas; Second Hand Exposure: No; Do You Dip or Chew Tobacco: No; Tobacco Cessation Education Requested by Patient: No Hx Alcohol Use: No Hx Substance Use: No Preferred Language: Andorran Communication Ability: Effective Human Resources Analyst Required: No Beliefs That Will Affect Care: None marital status: Current Living Situation: Spouse current occupational status: retired Other Information That Helps Us Care for You: No Feels Safe at Home: Yes Safety Concerns: Feels Safe At This Time Review of Systems Review of Systems: Mild distress and fatigue no headache, blurry or double vision no speech or swallowing issues no chest pain, pressure or palpitations no shortness of breath, cough or wheezes Minor right lower quadrant abdominal pain at surgical site, no nausea or vomiting no dysuria, hematuria or frequency no focal joint pain or swelling no back pain, CVA tenderness or radicular pain no bruising, bleeding or rashes no focal signs of weakness or numbness or altered sensation no complaints or anxiety or depression. Physical Exam Physical Exam: The patient appeared well nourished and normally developed. Vital signs as documented. Head exam is normocephalic atraumatic no scleral icterus Neck is without JVD, thyromegaly, or carotid bruits. Lungs are clear to auscultation, no focal loss of breath sounds Cardiac exam, Rhythm is regular.. No murmurs, rubs or gallops. Abdominal exam reveals normal bowel sounds, soft only tender in the right lower quadrant at the surgical site shows a surgical site however is clean dry and intact Extremities are nonedematous and both pedal pulses are normal. Neurologic exam is alert and oriented, no focal loss of strength or sensation Skin is without bruises or rashes Psychologically is without concerns for anxiety or depression Results & Data Results & Data ([facility]) Vital Signs (Past 12 Hours) Vital Signs Temp Pulse Pulse Pulse Resp BP BP 11/27/19 14:45 98.1 F 81 16 123/64 11/27/19 13:48 87 16 126/68 11/27/19 11:10 72 18 108/68 11/27/19 10:10 81 16 131/70 11/27/19 09:40 70 16 119/68 11/27/19 09:10 97.3 F L 77 16 121/63 11/27/19 08:55 98.1 F 69 18 117/65 11/27/19 08:45 98.1 F 70 16 119/64 11/27/19 08:35 98.1 F 70 17 119/70 11/27/19 08:25 72 18 120/70 11/27/19 08:15 73 18 127/66 11/27/19 08:09 96.8 F L 76 16 132/69 11/27/19 05:43 98.8 F 74 18 149/79 H Pulse Ox 11/27/19 14:45 93 11/27/19 13:48 92 11/27/19 11:10 93 11/27/19 10:10 94 11/27/19 09:40 97 11/27/19 09:10 95 11/27/19 08:55 95 11/27/19 08:45 96 11/27/19 08:35 97 11/27/19 08:25 98 11/27/19 08:15 99 11/27/19 08:09 99 11/27/19 05:43 96 PG Care Time/CCT Total # of Minutes Spent Total Time Spent with Patient: Total time spent is greater than 50% in coordination of care (as documented) at patient's floor/unit and/or counseling patient: Coding Level of Care Code 98267 Inpt Consult Level 2 Diagnoses H/O right inguinal hernia repair Z98.890; Z87.19 Hypertension I10 Hyperlipidemia E78.5 BPH (benign prostatic hyperplasia) N40.0
[2019-11-27] MEDS ORDERED: MELATONIN 3 MG TAB PO PRN (19:21)
[2019-11-27] MEDS ORDERED: FINASTERIDE 5 MG TAB PO SCH (21:00)
[2019-11-27] MEDS ORDERED: PRAVASTATIN SOD 40 MG TAB PO SCH (21:00)
[2019-11-28] MEDS: CEFAZOLIN 1000MG 1,000 MG/7.5 ML SYR IV SCH (06:19)
[2019-11-28] MEDS: DOCUSATE SODIUM/SENNA 50/8.6MG TAB PO SCH (08:27)
[2019-11-28] MEDS: hydroCHLOROthiazide 25 MG TAB PO SCH (08:27)
[2019-11-28] MEDS: MAGNESIUM HYDROXIDE SUSP 30 ML UDC PO SCH (08:27)
[2019-11-28] MEDS: LOSARTAN POTASSIUM 50 MG TAB PO SCH (08:27)
[2019-11-28] MEDS ORDERED: MAGNESIUM HYDROXIDE SUSP 30 ML UDC PO SCH (09:00)
[2019-11-28] MEDS ORDERED: DOCUSATE SODIUM/SENNA 50/8.6MG TAB PO SCH (09:00)
--- NOTE | 2019-11-28 11:21 | Discharge Summary (DS) ---
PRINCIPAL DIAGNOSIS: Right inguinal hernia. PROCEDURES: The patient underwent open right inguinal hernia repair. HISTORY OF PRESENT ILLNESS: The patient is an 84-year-old male, with a history of an enlarging right inguinal hernia, brought into the hospital on 11/27/2019 where he underwent open right inguinal hernia repair. He has done very well in the hospital overnight and is felt stable for discharge home today to be followed in the surgical clinic within 1 week.
== END 2019-11-28 10:15 | disposition home health service (06) ==
LOC: ASU 05:13 → 3W 05:13